=== PATIENT | female | born 1980 | race Caucasian/White ===

== ENCOUNTER 2024-08-15 08:11 | Emergency (ER) | payer BC, SELFPAY ==
--- NOTE | 2024-08-15 08:12 | ED_ITS ---
HPI - URI/Sore Throat General Chief Complaint: Upper Respiratory Infection Stated Complaint: Cough/Sinus Time Seen by Provider: 08/15/24 08:24 Source: patient, RN notes reviewed and old records reviewed Mode of arrival: ambulatory Limitations: no limitations History of Present Illness HPI Narrative: 44-year-old female presents to the [facility] with complaints of sinus congestion that started 2-3 weeks ago. Cough started last night or early this morning. Patient states that she lives in an assisted living facility so she is not able to take [id number] Products. Onset (ago): week(s) (2-3) Treatments prior to arrival: none Related Data Home Medications ?Medication ?Instructions ?Recorded ?Confirmed ?Last Taken ?Type blood sugar diagnostic (OneTouch 08/15/24 08/15/24 Unknown History Verio test strips) blood-glucose meter (OneTouch 08/15/24 08/15/24 Unknown History Verio Flex Meter) dulaglutide 1.5 mg/0.5 mL mg subcut 08/15/24 Unknown History subcutaneous pen injector (Trulicity) insulin glargine 100 unit/mL (3 unit subcut 08/15/24 Unknown History mL) subcutaneous pen (Lantus Solostar U-100 Insulin) insulin lispro 100 unit/mL subcut 08/15/24 Unknown History subcutaneous pen lancets 33 gauge (OneTouch Delica 08/15/24 08/15/24 Unknown History Plus Lancet) levothyroxine 100 mcg tablet mcg 08/15/24 Unknown History lithium carbonate 300 mg capsule mg 08/15/24 Unknown History pantoprazole 40 mg tablet,delayed mg PO 08/15/24 Unknown History release propranolol 10 mg tablet mg 08/15/24 Unknown History Allergies Allergy/AdvReac Type Severity Reaction Status Date / Time topiramate Allergy Severe Seizure Verified 08/15/24 08:36 lamotrigine (From Lamictal) AdvReac Severe Weakness Verified 08/15/24 08:36 lurasidone (From Latuda) AdvReac Severe Nervousness Verified 08/15/24 08:36 quetiapine (From Seroquel) AdvReac Severe Anaphylaxis Verified 08/15/24 08:36 Review of Systems Review of Systems: All systems reviewed & are unremarkable except as noted in HPI and below Constitutional: Constitutional: Reports no additional constitutional complaints ENT: Reports as per HPI, Reports nasal congestion and Reports sore throat Cardiovascular: Cardiovascular: Reports no additional cardiovascular complaints, Denies chest pain and Denies dyspnea Respiratory: Respiratory: Reports as per HPI, Denies chest congestion, Reports cough and Denies dyspnea Musculoskeletal: Musculoskeletal: Reports no additional musculoskeletal complaints Integumentary/Breasts: Skin/Breast: Reports system reviewed and no additional complaints, except as docu PMFSH Past Medical History Medical History (Updated 08/15/24 @ 15:08 by Brandy Almaguer APRN) Migraines Bipolar disorder Thyroid disease History of diabetes mellitus Surgical History Surgical History (Updated 08/15/24 @ 08:34 by Brandy Almaguer APRN) H/O knee surgery Bilateral Social History Social History (Updated 08/15/24 @ 08:35 by Brandy Almaguer APRN) Smoking status: Current every day smoker Tobacco type: cigarettes Living arrangements: assisted living Gender identity (if verbalized by the patient): Female Comments At the time of my signature, I reviewed and agree with the nursing past medical, surgical, social, and family history. There is no relevant family history pertinent to the patient complaint. Exam Const: General: cooperative, healthy appearing, comfortable, no acute distress, well developed, alert and well nourished Nutritional Appearance: well nourished and obese Orientation/consciousness: patient oriented x3 Limitations: no limitations HENMT: Head: normal to inspection Ears: hearing grossly normal bilaterally, external ears normal, TM's normal bilaterally, EAC's normal, mastoids normal and no periauricular adenopathy Face/Nose/Sinus: normal facial exam and face symmetric Face and sinus: normal facial exam and face symmetric Mouth: Yes Normal oral and palatal mucosa present, Yes lip normal, Yes tongue normal and Yes moist mucous membranes Throat: posterior oropharynx normal, uvula midline, postnasal drainage, tonsils absent and no uvular edema Eyes: General: appearance normal, both eyes and all related structures Neck: Neck: normal visual inspection, full ROM, no lymphadenopathy and no meningeal signs Chest: Chest palpation & inspection: normal inspection of the chest Resp: Effort & Inspection: normal respiratory effort and able to speak in complete sentences Auscultation: no crackles, no rales, no rhonchi, no wheezes and diminished lung sounds Cardio: Rate: regular rate Skin: General skin exam: normal color and no rashes or lesions noted Neuro: General: patient oriented x3, gait normal, moves all extremities and no meningeal signs Cognition (Neuro): normal cognition Speech: normal speech Gait exam (Neuro): Normal gait present Extrem: General: normal to inspection, full ROM, capillary refill normal and normal gait Psych: Appearance: grossly normal and well kempt Mental Status: mental status grossly normal Speech and movement: Normal speech and movement present and Clear speech present Affect: normal affect Attitude: cooperative Course Course Level of Care: Express Care Visit Vital Signs Vital signs: Vital Signs Temperature 98.9 F 08/15/24 08:23 Pulse Rate 79 08/15/24 08:23 Respiratory Rate 16 08/15/24 08:23 Blood Pressure 128/69 08/15/24 08:23 Pulse Oximetry 97 08/15/24 08:23 Oxygen Delivery Room Air 08/15/24 08:23 Temperature 98.9 F 08/15/24 08:23 Pulse Rate 79 08/15/24 08:23 Respiratory Rate 16 08/15/24 08:23 Blood Pressure 128/69 08/15/24 08:23 Pulse Oximetry 97 08/15/24 08:23 Oxygen Delivery Room Air 08/15/24 08:23 Reviewed MDM - URI/Sore Throat MDM Narrative Medical decision making narrative: Patient sitting in exam room. Nontoxic, vitals stable. Patient in no acute distress. Patient presents with sinus congestion by 2-3 weeks, worsening cough. Patient is a smoker and a diabetic. Will attempt to cover with doxycycline albuterol inhaler. Not prescribe being a steroid due to patient's diabetes, unsure of how well controlled. Patient appropriate for outpatient treatment and follow-up of sinusitis, bronchitis. Discharge instructions reviewed with patient, as well as provided in writing per nursing staff. The instructions also include specific and strict return/GO TO THE ER as well as f/u information. All questions have been answered, and the patient deny any further questions with discharge and discharge plan. Some parts of this dictation were generated by voice recognition software and may contain typographical and/or grammatical inaccuracies. Differential Diagnosis Differential diagnosis: Likely upper respiratory infection, otitis media, sinusitis, viral infection and bronchitis Critical Care Time Critical Care Time Critical Care Time: No Discharge Plan Discharge Clinical Impression: Bronchitis Sinusitis Qualifiers: Sinusitis location: pansinusitis Chronicity: acute Recurrence: not specified as recurrent Qualified Code(s): J01.40 - Acute pansinusitis, unspecified Patient Disposition: Home, Self-Care Condition: Stable Instructions: Antibiotic Form, Sinusitis (ED), Acute Bronchitis (ED) Additional Instructions: It is very important to treat your symptoms. Drink plenty of water, Gatorade, Pedialyte, ice pops or Jell-O. -Alternate Tylenol and Motrin per package directions for fever or pain. You can alternate every 4 hours -Antihistamine medication such as Zyrtec/Claritin/Maine during the day can help improve symptoms. -doing daily nasal irrigations can help relieve pressure your sinuses. Things like a Neti pot -Use Flonase twice a day for 5 days then daily to help reduce the inflammation and dry up your sinuses. -You can also use Mucinex. Be sure to drink plenty of water with this medication at least 8 ounces with every dose and it is important to drink 8 to 10 glasses of water per day. Water is a natural decongestant -Eat and drink things that are easy to swallow, like tea or soup, or popsicles. -Oral rinses such as: Salt water gargles and/or may use topical anesthetic (eg. Chloraseptic spray) or lozenges to relieve dryness or throat pain). -Frequent hand washing or hand medical office technology instructor is one of the best ways to prevent spread of infection. -Using a vaporizer or humidifier at night will also help thin secretions and help with coughing up phlegm. -Follow up with primary care provider in 7-10 days if condition is not improving - For new or worsening symptoms go directly to the nearest ER Patient Language: Macedonian Prescriptions: New (DME) Aerochamber MV Spacer See Rx Instructions .Route Qty: 1 0RF Rx Instructions: As directed doxycycline monohydrate 100 mg tablet 100 mg PO BID Qty: 14 0RF albuterol sulfate 90 mcg/actuation HFA aerosol inhaler 2 puff inhalation QID PRN (Reason: shortness of breath or wheezing) Qty: 6.7 0RF No Action (DME) blood-glucose meter [OneTouch Verio Flex meter] Misc MISCELLANEOUS (DME) OneTouch Verio test strips Strip MISCELLANEOUS levothyroxine 100 mcg tablet propranolol 10 mg tablet lithium carbonate 300 mg capsule pantoprazole 40 mg tablet,delayed release (DR/EC) PO insulin lispro 100 unit/mL insulin pen SUBCUT insulin glargine [Lantus Solostar U-100 Insulin] 100 unit/mL (3 mL) insulin pen SUBCUT (DME) lancets [OneTouch Delica Plus Lancet] 33 gauge misc MISCELLANEOUS Trulicity 1.5 mg/0.5 mL pen injector SUBCUT Follow-up/Referrals: UNKNOWN,DOCTOR [Non-Staff] - Time of Disposition: 08:39
[2024-08-15 08:23] VITALS: BP 128/69; PULSE 79; RESP 16; TEMP 37.2; O2SAT 97
== END 2024-08-15 08:41 | disposition home or self-care (01) ==
PROVIDERS: Emergency Provider Nurse Practitioner
DX: J40 Bronchitis, not specified as acute or chronic (principal); J01.40 Acute pansinusitis, unspecified; E11.9 Type 2 diabetes mellitus without complications; F17.210 Nicotine dependence, cigarettes, uncomplicated; Z79.899 Other long term (current) drug therapy; Z79.4 Long term (current) use of insulin
CPT/HCPCS: 99203; G0463